=== PATIENT | male | born 1990 | race Caucasian/White ===

== ENCOUNTER 2023-12-19 09:05 | Outpatient (CLI) | payer OTHER, SELFPAY | END 2023-12-19 09:06 | disposition home or self-care (01) | LOC: NFLDREF 14:41 | PROVIDERS: Visit Provider Internal Medicine | DX: Z13.220 Encounter for screening for lipoid disorders (principal); Z13.228 Encounter for screening for other metabolic disorders | CPT/HCPCS: 80053; 80061 ==

== ENCOUNTER 2024-05-08 21:44 | Emergency (ER) | payer OTHER, SELFPAY ==
[2024-05-08 21:53] VITALS: BP 138/77; PULSE 79; RESP 16; TEMP 37.5; O2SAT 98; BMI 23.1
--- NOTE | 2024-05-08 21:58 | CRLHL7_ITS ---
For Patients: As a result of the Cures Act, medical imaging exams and procedure reports are released immediately into your electronic medical record. You may view this report before your referring provider. If you have questions, please contact your health care provider. INDICATION: RT ANKLE PAIN, INJURY DURING PICKLEBALL RIGHT ANKLE No fracture, dislocation, or destructive lesion of bone is seen. No arthritic changes or soft tissue abnormalities are identified. IMPRESSION: Negative right ankle radiographs. KITA MORALES MD [facility] Dictated by: Marcus Morales MD @ 05/08/2024 22:35:32 (Electronically Signed)
--- NOTE | 2024-05-08 22:38 | ED.GENADULT ---
HPI - General Adult General Chief complaint: Extremity Pain/Injury, Lower Stated complaint: right ankle injury Time Seen by Provider: 05/08/24 22:15 Source: patient Mode of arrival: ambulatory Limitations: no limitations History of Present Illness HPI narrative: 33-year-old male coming in today complaining of ankle and leg pain. States that he was playing pickleball when he planted the right foot and felt a pop and felt immediate pain in the back of the ankle. Denies any other injury. He can walk but it is very painful. Related Data Home Medications ?Medication ?Instructions ?Recorded ?Confirmed No Known Home Medications 12/05/23 05/08/24 Allergies Allergy/AdvReac Type Severity Reaction Status Date / Time No Known Allergies Allergy Unknown Verified 05/08/24 21:57 Review of Systems Status of ROS: Reports: 6 or more systems reviewed and unremarkable except as noted in History and below [facility] Social History Smoking Status: Never smoker Little interest or pleasure in doing things: not at all Feeling down, depressed, or hopeless: not at all Exam Narrative: Exam Narrative: Well-nourished well-developed patient in no acute distress. Alert and oriented. Answers questions appropriately. Mood and affect are appropriate. Thoughts are goal oriented and rational. No tangential or magical thinking noted. Patient speaks in full sentences without needing to catch his breath. HEENT: Normocephalic atraumatic. Extraocular muscles are intact. Conjunctivae are moist without any icterus noted. Moist mucous membranes. Extremities: He does not have any swelling of the ankles. Knees have normal appearance. He has no tenderness to palpation of the anterior, lateral or medial ankle. He has a visibly missing Achilles tendon on the right. Patel test is positive-results in abscess of plantar flexion. Patient has normal DP and PT pulses. There is no obvious ecchymosis, no evidence of hematoma. Const: Vital Signs, click to edit/add: Vital Signs - 24 hr 05/08/24 21:53 Temperature 99.5 F Pulse Rate [Pulse Oximeter] 79 Respiratory Rate 16 Blood Pressure [Ri ght Upper Arm] 138/77 Pulse Oximetry 98 Oxygen Delivery Me thod Room Air Course Course ED Course: X-ray of the ankle, read by me, does not show any evidence of fractures. Patient is placed in a short leg splint with some plantar flexion. We discussed pain management, elevation and Orthopedic follow-up. Patient will be nonweightbearing. Vital Signs Vital signs: Initial Vital Signs Temperature 99.5 F 05/08/24 21:53 Temperature Source Temporal Artery Scan 05/08/24 21:53 Pulse Rate 79 05/08/24 21:53 Pulse Rhythm Regular 05/08/24 21:53 Pulse Strength 3+ Normal 05/08/24 21:53 Respiratory Rate 16 05/08/24 21:53 Blood Pressure 138/77 05/08/24 21:53 Blood Pressure Mean 97 05/08/24 21:53 Blood Pressure Position Semi-Fowlers 05/08/24 21:53 Pulse Oximetry 98 05/08/24 21:53 Oxygen Delivery Method Room Air 05/08/24 21:53 Vital Signs Temperature 99.5 F 05/08/24 21:53 Pulse Rate 79 05/08/24 21:53 Respiratory Rate 16 05/08/24 21:53 Blood Pressure 138/77 05/08/24 21:53 Pulse Oximetry 98 05/08/24 21:53 Oxygen Delivery Method Room Air 05/08/24 21:53 Temperature 99.5 F 05/08/24 21:53 Pulse Rate 79 05/08/24 21:53 Respiratory Rate 16 05/08/24 21:53 Blood Pressure 138/77 05/08/24 21:53 Pulse Oximetry 98 05/08/24 21:53 Oxygen Delivery Method Room Air 05/08/24 21:53 Medical Decision Making MDM Narrative Medical decision making narrative: Achilles tendon rupture. Plan and care per above. Patient is sent home with 4 tablets of YUPIQ. Imaging Data X-ray ankle: Attestation: I have reviewed the pertinent imaging results. Radiologist's impression: Procedure(s): XR ankle RT min 3V Accession Number(s): [id number] cc: Nelly Castrejon M.D.; Provider,Not a Local~ For Patients: As a result of the 21st Century Cures Act, medical imaging exams and procedure reports are released immediately into your electronic medical record. You may view this report before your referring provider. If you have questions, please contact your health care provider. INDICATION: RT ANKLE PAIN, INJURY DURING PICKLEBALL RIGHT ANKLE No fracture, dislocation, or destructive lesion of bone is seen. No arthritic changes or soft tissue abnormalities are identified. IMPRESSION: Negative right ankle radiographs. Discharge Plan Discharge Clinical Impression: Achilles tendon rupture Patient Disposition: Home, Self-Care Condition: Stable Additional Instructions: Okay to use ibuprofen and/or Tylenol as needed/as directed. Elevate legs as much as possible. Wear splint at all times, and you should be non pbrfav-[id number]-oll crutches at all times and do not place foot on the ground. You need to follow-up with an orthopedic surgeon. [place] tablets sent to [facility]. Prescriptions: No Action No Known Home Medications Follow Up/Referrals: Provider,Not a Local [Primary Care Provider] - Stand Alone Forms: [employer] Info Instructions
[2024-05-08 22:52] VITALS: BP 125/70; PULSE 74; RESP 16; TEMP 37; O2SAT 98
[2024-05-08 22:54] VITALS: BP 125/70; PULSE 74; RESP 16; TEMP 37
== END 2024-05-08 22:55 | disposition home or self-care (01) ==
LOC: ED 22:30
PROVIDERS: Emergency Provider Family Medicine
DX: S86.001A Unspecified injury of right Achilles tendon, initial encounter (principal); Y93.73 Activity, racquet and hand sports
CPT/HCPCS: 29515; 73610; 99283; 99284

== ENCOUNTER 2024-05-15 07:24 | Day surgery (SDC) | payer OTHER, SELFPAY ==
[2024-05-15] VITALS (14 sets, daily range): BP systolic 93–138; BP diastolic 52–98; PULSE 57–68; RESP 12–20; TEMP 36.1–36.7; O2SAT 98–100; BMI 23.8
[2024-05-15] MEDS: LACTATED RINGERS 1000 ML 1,000 ML 100 ML IV ×2 (07:40→10:41)
[2024-05-15] MEDS: SODIUM CHLORIDE 0.9 % (FLUSH) 10 ML SYRINGE IVF (08:00)
[2024-05-15] MEDS: MIDAZOLAM HCL 1 MG/ML inj IVP (08:32)
[2024-05-15] MEDS: fentaNYL 100 MCG/2 ML inj IVP (08:32)
--- NOTE | 2024-05-15 08:32 | SUR.PREOP ---
TIME?OUT:?0830 PT/RN/MDA?VERIFICATION?OF?SURGICAL?SITE-RIGHT ACHILLES,?PROCEDURE,?NERVE BLOCK, AND?CONSENT OBTAINED?PRIOR?TO?INVASIVE?PROCEDURE.
[2024-05-15] MEDS: CEFAZOLIN 2 GM INJ IVP (08:53)
--- NOTE | 2024-05-15 09:21 | W.ANESCHARGE ---
Anesthesia Charges Start Date/Time Anesthesia Start Date: 05/15/24 Anesthesia Start Time: 08:39 Stop Date/Time Anesthesia Stop Date: 05/15/24 Anesthesia Stop Time: 11:15
--- NOTE | 2024-05-15 09:22 | W.PM.NB ---
Nerve Block Nerve Block Time Seen by Provider: 08:32 Date Seen: 05/15/24 Type of block requested by surgeon for post-operative analgesia: popliteal Side: right Time out performed: Yes Verification of patient name: Yes Verification of date of : Yes Site marking: site marked Name of person performing procedure: Nelson Continuous monitoring Was continuous monitoring of O2 sat, B/P, precision instrument maker, recorded every 15 minutes?: Yes Procedure Checklist: sterile prep, needles and gloves Ultrasound guided. Images saved: Yes Medications given in 5ml increments after negative aspiration: Marcaine %: 0.5 mL: 20 Needle gauge: 22 Patient tolerated procedure well: Yes Additional comments: Needle noted adjacent to nerve Block Charges Block Charge (with Pro Fee): Sciatic Nerve Use of Ultrasound Machine for Block: Yes- US Guidance/pain block
--- NOTE | 2024-05-15 10:10 | W.ANESCHARGE ---
Anesthesia Charges Start Date/Time Anesthesia Start Date: 05/15/24 Anesthesia Start Time: 08:39 Stop Date/Time Anesthesia Stop Date: 05/15/24 Anesthesia Stop Time: 11:15
--- NOTE | 2024-05-15 11:23 | SUR.PHASEI ---
Patient awake and comfortable, no nausea refused ice chips when offered, states pain is minimal at a number of 4, does not want pain medication at this time.
--- NOTE | 2024-05-15 11:40 | SUR.PHASEI ---
patient meets anesthesia discharge criteria from PACU
[2024-05-15] MEDS: OxyCODONE/APAP 5-325 TABLET 1 TAB PO (12:14)
--- NOTE | 2024-05-15 12:25 | SUR.OPER ---
PATIENT QUESTIONS ANSWERED SATISFACTORILY PREOPERATIVELY.? PATIENT BROUGHT TO OR #2 PER CART AFTER ADMINISTRATION OF A BLOCK.? Patient positioned supine on OR #2 bed.? The perioperative?team supported arms bilaterally on arm boards.? Final approval of positioning by surgeon.
--- NOTE | 2024-05-16 08:54 | P.ORPRC_ITS ---
Procedure Note Date of procedure: 05/15/2024 Procedure: SURGEON: Toni Stewart MD MEDICAL CLERK: Malgorzata Chandra PA-C, Aurelia Sevilla PA-C PREOPERATIVE DIAGNOSIS: Right lower extremity Achilles rupture POSTOPERATIVE DIAGNOSIS: Right lower extremity Achilles rupture NAME OF OPERATION: Primary repair with flexor hallucis longus augmentation ANESTHESIA: Spinal, plus popliteal block ESTIMATED BLOOD LOSS: 0 mL COMPLICATIONS: None SPECIMENS: None DRAINS: None PREOPERATIVE ANTIBIOTICS: Ancef 2 gram INDICATIONS: The patient is a 33-year-old male who sustained a right lower extremity Achilles tendon rupture. Primary repair with FHL augmentation was recommended. The risks, benefits and expected outcomes were discussed in detail. These included but were not limited to: Infection, bleeding, injury to blood vessel or nerve, venous thromboembolism. All questions were answered to their satisfaction. Use of an construction assistant was necessary throughout the case for patient positioning and safety, soft tissue retraction and closure. PROCEDURE: A popliteal block was placed by anesthesia. The patient was placed supine on the operating room table. Spinal anesthesia was administered. The right lower extremity was prepped and draped in the usual sterile fashion. The limb was exsanguinated with the Curly bandage. The pneumatic tourniquet was inflated to 300 mmHg. A longitudinal incision was made medially, over the Achilles tendon. Subcutaneous dissection was taken sharply to the Achilles which was completely ruptured. The construction assistant was used to retract the soft tissues and protect them. A #2 FiberWire suture was placed in each end of the Achilles in a modified Krackow stitch. Attention was then turned to the FHL graft harvest. The deep fascia over the FHL was longitudinally divided. The FHL muscle belly was mobilized off of the fibula. Care was taken to protect the tibial nerve. We elected to proceed with a long FHL graft harvest. Therefore, a longitudinal incision was made over the medial border of the foot in the junction between the normal and glabrous skin. Subcutaneous dissection sharply taken to the abductor hallucis muscle. The muscle was elevated off of the bone and retracted plantarly. Crossing veins were cauterized. The master knot of Bipin was encountered. The FHL tendon was isolated and was divided, just distal to the master knot of Bipin. The graft was pulled into the proximal wound. We then passed the FHL graft from anterior to posterior through the distal stump of the tendon, just proximal to its insertion. The ankle was placed in plantar flexion and the FiberWire sutures were tied securing the primary repair of the Achilles tendon. We then placed the ankle at 90? and tensioned the FHL graft and sutured it to the distal stump of the Achilles tendon with an 0 Vicryl suture. It was secured along the medial border of Achilles with multiple interrupted horizontal mattress 0 Vicryl sutures. It was then advanced distally again across the rupture site and secured to the achilles again. This provided an excellent repair of the Achilles with augmentation. There is no tension on the repair with the ankle in a neutral position. The wounds were irrigated with normal saline. The construction assistant closed soft tissue with a 2-0 Vicryl deep and a 3-0 Monocryl in a subcuticular fashion. Glue was used to seal the skin. The construction assistant placed a dry dressing and short leg Jacobo Sal splint with the ankle in a neutral position. The tourniquet was released. Sponge and needle counts were correct x 2. The patient tolerated the procedure well. There were no apparent complications. They were carefully transferred to the hospital bed and taken to the postanesthesia care unit in satisfactory condition. PLAN: The patient will be discharged to home. They will remain strict nonweightbearing on the lower extremity. They will continue to work on ice and elevation. They will follow up in the office in 1 week for a wound check. If there are no wound issues we will place him back in the CAM walker and allow him to weightbear as tolerates. Additionally, we will begin some early physical therapy.
== END 2024-05-15 13:22 | disposition home or self-care (01) ==
LOC: OR 07:25
PROVIDERS: PCP Internal Medicine; Visit Provider Orthopaedic Surgery
PROC: (CPT 27650; principal; 2024-05-15 09:15)
DX: S86.011A Strain of right Achilles tendon, initial encounter (principal); G89.18 Other acute postprocedural pain
CPT/HCPCS: 27650; 01470; 01472; 64445; 76942; A4580; A9270; J0665; J0690; J1100; J2250; J2405; J2704; J3010; J7120

== ENCOUNTER 2024-10-05 15:15 | Outpatient (RCR) | payer OTHER, SELFPAY | END 2025-01-02 12:41 | disposition home or self-care (01) | PROVIDERS: PCP Internal Medicine; Visit Provider Orthopaedic Surgery | DX: S96.011D Strain of muscle and tendon of long flexor muscle of toe at ankle and foot level, right foot, subsequent encounter (principal); S86.019A Strain of unspecified Achilles tendon, initial encounter; Z98.890 Other specified postprocedural states; M25.571 Pain in right ankle and joints of right foot; M25.671 Stiffness of right ankle, not elsewhere classified; M62.571 Muscle wasting and atrophy, not elsewhere classified, right ankle and foot; R26.9 Unspecified abnormalities of gait and mobility; M62.81 Muscle weakness (generalized); Z51.89 Encounter for other specified aftercare | CPT/HCPCS: 97110; 97112; 97116; 97140; 97161 ==

== ENCOUNTER 2025-06-17 07:55 | Outpatient (CLI) | payer OTHER, SELFPAY | END 2025-06-17 07:56 | disposition home or self-care (01) | LOC: NFLDREF 06-19 15:20 | PROVIDERS: PCP Internal Medicine; Referring Provider Internal Medicine; Visit Provider Internal Medicine | DX: E78.5 Hyperlipidemia, unspecified (principal); Z13.9 Encounter for screening, unspecified | CPT/HCPCS: 80053; 80061 ==